=== PATIENT | female | born 1950 | race Caucasian/White ===

== ENCOUNTER 2019-10-01 21:10 | Emergency (ER) | payer MEDICARE, BC ==
[2019-10-01] MEDS ORDERED: Triamcinolone 40 MG/ML VIAL ONE (22:35)
== END 2019-10-01 22:58 | disposition home or self-care (01) ==
LOC: BURERS 21:10
DX: L23.7 Allergic contact dermatitis due to plants, except food (principal); I48.91 Unspecified atrial fibrillation; M19.90 Unspecified osteoarthritis, unspecified site; I10 Essential (primary) hypertension; Z79.899 Other long term (current) drug therapy
CPT/HCPCS: 96372; 99282; J3301

== ENCOUNTER 2023-10-15 10:15 | Emergency (ER) | payer MEDICARE, BC | END 2023-10-15 10:42 | disposition home or self-care (01) | LOC: BURERS 10:15 | DX: U07.1 COVID-19 (principal); J06.9 Acute upper respiratory infection, unspecified; I48.91 Unspecified atrial fibrillation; I10 Essential (primary) hypertension | CPT/HCPCS: 99283 ==